=== PATIENT | male | born 1975 | race African-American/Black ===

== ENCOUNTER → 2016-10-19 | Outpatient (CLI) | payer BC ==
--- NOTE | 2016-10-20 07:50 | XR ---
Bilateral hip HISTORY: Bilateral hip pain 2 views of each hip are submitted. There is some marginal spurring at the acetabulum bilaterally. Mil d loss of joint space is noted. Bone mineralization and alignment are maintained. IMPRESSION: Mild osteoarthritic change is suspected.
--- NOTE | 2016-10-20 15:53 | XR ---
Lumbosacral spine HISTORY: Low back pain 5 views of the lumbosacral spine No comparisons Lumbar vertebral bodies show height, alignment, and bone mineralization. There is multilevel spondylo sis. Disc spaces are maintained. There is no spondylolysis or spondylolisthesis. IMPRESSION: Lumbar spondylosis.
== END | disposition home or self-care (01) ==
LOC: RADXRYALE 12:06
PROVIDERS: ATTEND Family Medicine
DX: M47.816 Spondylosis without myelopathy or radiculopathy, lumbar region (principal); M25.551 Pain in right hip; M25.552 Pain in left hip
CPT/HCPCS: 72110; 73521